=== PATIENT | female | born 1965 | race Two or more races ===

== ENCOUNTER 2018-12-26 12:43 | Inpatient (IN) | payer MEDICAID, OTHER ==
[~2018-12-26] VITALS: Ht 162.6 cm; Wt 81.6 kg
[2018-12-26] MEDS ORDERED: cloNIDine HCL 0.1 MG TAB PO ONE (13:15)
[2018-12-26] MEDS ORDERED: SODIUM CHLORIDE 0.9% 1,000 ML IV ONE ×2 (15:00→16:30)
[2018-12-26 15:33] LABS: Basophils # (auto) 0.1 uL; Eosinophils # (auto) 0.2 uL; Lymphocytes # (auto) 1.9 uL; Mean Corpuscular Hemoglobin 25.1 pg (28.0-32.0); Mean Corpuscular Volume 78.1 fL (80.0-100.0); White Blood Cell 6.4 10^3/uL (4.4-10.8)
[2018-12-26 15:35] LABS: Albumin 3.3 g/dL (3.4-5.0); Calcium 8.4 mg/dL (8.5-10.1); Eosinophils % (auto) 2.6 % (0.0-7.0); Hematocrit 45.2 % (36.0-46.0); Hemoglobin 14.5 g/dL (12.2-16.2); Lymphocytes % (auto) 30.2 % (10.0-50.0); Mean Corpuscular Hgb Conc. 32.1 g/dL (32.0-36.0); Monocytes # (auto) 0.4 uL; Monocytes % (auto) 6.9 % (0.0-12.0); Neutrophils # (auto) 3.8 uL; Neutrophils % (auto) 59.3 % (37.0-80.0); Nucleated Red Blood Cells % 0.1 %; Platelet Count (auto) 306 10^3/uL (140-450); Potassium 4.2 mmol/L (3.5-5.1); Red Blood Cells 5.79 10^6/uL (4.0-5.20); Red Cell Distribution Width 18.4 % (11.8-14.3)
[2018-12-26 15:44] LABS: BUN/Creatinine Ratio 11.7; Bilirubin, Total 0.1 mg/dL (0.2-1.0); Total Protein 7.9 g/dL (6.4-8.2)
[2018-12-26] MEDS ORDERED: InsuLIN REG 1unit/0.01ml Soln (100units/ml) IV ONE (16:30)
[2018-12-26] MEDS ORDERED: MORPHINE SULF INJ 2 MG/ML SYRINGE 1ML IV PRN (16:45)
[2018-12-26] MEDS ORDERED: ALBUTEROL SULF 2.5 MG/0.5ML(0.5%) NEB SOLN NEB PRN (16:45)
[2018-12-26] MEDS ORDERED: DEXTROSE (50%) 50ML SYRG IV PRN (16:45)
[2018-12-26] MEDS ORDERED: cefTRIAXone 1GM/50ML D5W 50 ML IV ONE (16:45)
[2018-12-26] MEDS ORDERED: PROMETHAZINE HCL 25 MG/ML 1ML IV PRN (16:45)
[2018-12-26] MEDS ORDERED: TEMAZEPAM 15 MG CAP PO PRN (16:45)
[2018-12-26] MEDS ORDERED: INSULIN LANTUS (GLARGINE) 1 /0.01ml (100units/ml) SC ONE (16:45)
[2018-12-26] MEDS ORDERED: LACTULOSE 20Gm/30ML SOLN PO PRN (16:45)
[2018-12-26] MEDS ORDERED: NITROGLYCERIN 0.4 MG SL TAB SL PRN (16:45)
[2018-12-26] MEDS ORDERED: ACETAMINOPHEN 500 MG TAB PO PRN (16:45)
[2018-12-26 17:17] LABS: Amylase 45 U/L (25-115); Lipase 137 U/L (73-393)
[2018-12-26] MEDS: SODIUM CHLORIDE 0.9% 1,000 ML IV SCH (17:47)
[2018-12-26 17:51] VITALS: BP 130/62
--- NOTE | 2018-12-26 18:43 | NUR ---
Respiratory note: ASSESSMENT FOR PRN MED NEB TX. PT RESTING IN BED COMFORTABLY AT THIS TIME. NO RESPIRATORY DISTRESS NOTED. HR 83, SPO2 98% ON ROOM AIR, RR 16, BS CLEAR. MED NEB TX NOT INDICATED AT THIS TIME. PT AWARE TO HAVE RT PAGED IF MED NEB TX IS NEEDED, WILL CONTINUE TO MONITOR.
[2018-12-26 18:50] LABS: Alcohol, Urine < 3.0 mg/dL (0-5); Amphetamine Screen, Urine NEGATIVE (NEGATIVE); Barbiturate Scree,Urine NEGATIVE (NEGATIVE); Benzodiazephine Screen, Urine NEGATIVE (NEGATIVE); Cannabinoid Screen, Urine NEGATIVE (NEGATIVE); Cocaine Screen, Urine NEGATIVE (NEGATIVE); Opiate Scree,Urine NEGATIVE (NEGATIVE); Phencyclidine Screen, Urine NEGATIVE (NEGATIVE)
[2018-12-26 18:55] LABS: Urine Bacteria NONE SEEN /hpf (None Seen); Urine Blood Negative /uL (Negative); Urine Specific Gravity 1.031 (1.001-1.035); Urine WBC <1 /hpf (0 - 5)
[2018-12-26] MEDS: InsuLIN REG 1unit/0.01ml Soln (100units/ml) SC SCH (20:00)
[2018-12-26] MEDS: ACCU-CHEK COMFORT CURVE STRIP VI SCH (20:00)
[2018-12-26 22:10] VITALS: BP 145/75
[2018-12-26] MEDS ORDERED: METF-370 PO (22:25)
[2018-12-26] MEDS ORDERED: CITA10TA59 PO (22:25)
[2018-12-26] MEDS ORDERED: LISI-646 PO (22:25)
[2018-12-26] MEDS ORDERED: ZOLP10TA PO (22:25)
[2018-12-26 22:32] VITALS: BP 130/85
[2018-12-26] MEDS: FAMOTIDINE 20 MG TAB PO SCH (22:39)
[2018-12-26] MEDS: INSULIN LANTUS (GLARGINE) 1 /0.01ml (100units/ml) SC SCH (22:39)
[2018-12-26] MEDS: traMADol HCL 50 MG TAB PO PRN (22:40)
[2018-12-27] MEDS: InsuLIN REG 1unit/0.01ml Soln (100units/ml) SC SCH ×5 (00:30→16:20)
[2018-12-27] MEDS: ACCU-CHEK COMFORT CURVE STRIP VI SCH ×5 (01:12→16:20)
[2018-12-27 05:54] VITALS: BP 172/83
[2018-12-27] MEDS: SODIUM CHLORIDE 0.9% 1,000 ML IV SCH ×4 (06:04→19:24)
[2018-12-27] MEDS: INSULIN LANTUS (GLARGINE) 1 /0.01ml (100units/ml) SC SCH (06:47)
[2018-12-27] MEDS: traMADol HCL 50 MG TAB PO PRN ×2 (06:52→17:24)
--- NOTE | 2018-12-27 07:28 | NUR ---
Respiratory note: PT IS AWAKE, AND ALERT. NO RESPIRATORY DISTRESS NOTED. SPO2 98% ON RA, HR 84, RR 18, BS CLEAR T/O. NO PRN TX INDICATED AT THIS TIME. PT INFORMED TO PUSH CALL BUTTON IF INCREASED WOB, SOB, OR WHEEZING OCCURS.
[2018-12-27 07:45] LABS: Potassium 4.2 mmol/L (3.5-5.1)
[2018-12-27 07:53] LABS: Albumin 2.9 g/dL (3.4-5.0); BUN/Creatinine Ratio 23.1; Bilirubin, Total 0.2 mg/dL (0.2-1.0); Calcium 8.1 mg/dL (8.5-10.1); Total Protein 6.5 g/dL (6.4-8.2)
--- NOTE | 2018-12-27 08:15 | NUR ---
Opening Shift Note Assumed care of patient, awake, alert, and oriented. No S/S of distress/SOB or pain. Instructed on POC and to call for assist PRN with call light within reach. Bed in low/locked position, side rails upx2. Will continue to monitor for changes Q1hr and PRN.
[2018-12-27] MEDS: FAMOTIDINE 20 MG TAB PO SCH (08:37)
[2018-12-27 09:00] VITALS: BP 152/93
[2018-12-27] MEDS ORDERED: cefTRIAXone 1GM/50ML D5W 50 ML IV SCH (09:00)
[2018-12-27] MEDS: hydrALAZINE HCL 20 MG/ML VL IV PRN ×2 (09:00→16:20)
[2018-12-27 13:00] VITALS: BP 139/73
--- NOTE | 2018-12-27 13:25 | NUR ---
MD ROUNDS DR GOMEZ AT BEDSIDE DISCUSSING POC WITH PATIENT. ALL QUESTIONS/CONCERNS ANSWERED. NEW ORDERS RECEIVED/CARRIED OUT. WILL CONTINUE TO MONITOR
[2018-12-27 17:00] VITALS: BP 163/97
--- NOTE | 2018-12-27 19:00 | NUR ---
CLOSING SHIFT ENDORSED CARE TO NIGHT RN. NO S/S SOB, DISTRESS, OR PAIN
--- NOTE | 2018-12-27 20:12 | NUR ---
RT NOTE PRN ASSESSMENT DONE SC NOT INDICATED AT THIS TIME NO DISTRESS NOTED
--- NOTE | 2018-12-27 20:45 | NUR ---
DISCHARGE NOTE PT DC'D HOME IN STABLE COND. DC INSTRUCTIONS GIVEN IN WRITING AND VERBALLY AND PT VERBALIZES UNDERSTANDING. PRESCRIPTIONS GIVEN AND COPIES IN THE CHART. IV DC'D WITH CATH TIP INTACT, TELE MONITOR DC'D, AND BANDS CUT. PT ESCORTED OUT VIA W/C WITH AND STAFF ASSISTING HER.
== END 2018-12-27 20:45 | disposition home or self-care (01) | DRG 305 ==
LOC: ER 12:47 → TELE 12:48 → TELE-WESTW 20:04
PROVIDERS: ADMIT Internal Medicine; ATTEND Internal Medicine
DX: I16.0 Hypertensive urgency (principal); E11.65 Type 2 diabetes mellitus with hyperglycemia; I10 Essential (primary) hypertension; F41.9 Anxiety disorder, unspecified; F32.9 Major depressive disorder, single episode, unspecified; J06.9 Acute upper respiratory infection, unspecified; E66.9 Obesity, unspecified; Z83.3 Family history of diabetes mellitus; Z80.9 Family history of malignant neoplasm, unspecified; Z87.891 Personal history of nicotine dependence; Z90.49 Acquired absence of other specified parts of digestive tract; Z68.30 Body mass index [BMI] 30.0-30.9, adult
CPT/HCPCS: 36415; 71046; 80053; 80061; 80307; 81001; 82150; 82962; 83036; 83690; 85025; 85652; 94761; 96361; 96365; 96367; G0378; J0696; J1815

== ENCOUNTER 2019-05-02 16:24 | Emergency (ER) | payer MEDICAID, OTHER ==
[~2019-05-02] VITALS: Ht 160 cm; Wt 74.8 kg
[~2019-05-02 16:24] MED LIST: CITA10TA59 PO; LISI-646 PO; METF-370 PO; ZOLP10TA PO
[2019-05-02 16:53] VITALS: BP 177/90
[2019-05-02] MEDS ORDERED: cefTRIAXone SOD 1,000 MG VL IM ONE (17:15)
== END 2019-05-02 17:46 | disposition home or self-care (01) ==
LOC: ER 16:28
DX: B37.2 Candidiasis of skin and nail (principal); E11.9 Type 2 diabetes mellitus without complications; I10 Essential (primary) hypertension; Z90.49 Acquired absence of other specified parts of digestive tract
CPT/HCPCS: 96372; 99283; J0696